=== PATIENT | male | born 1940 ===

== ENCOUNTER 2022-08-09 11:18 | Outpatient (CLI) | payer MEDICARE ==
[2022-08-09 12:56] LABS: Hemoglobin 12.4 g/dL (13.5-17.5); Mean Corpuscular HGB CONC 34.3 g/dL (32.0-36.0); Mean Corpuscular Hemoglobin 30.9 pg (27.0-33.0); Mean Corpuscular Volume 90.3 fl (81.2-95.1); Mean Platelet Volume 9.8 fl (7.4-10.4); Platelet Count 171 10x3/uL (150-450); RBC Distribution Width 13.1 % (11.5-14.5); Red Blood Cell (RBC) Count 4.01 10x6/uL (4.32-5.72); White Blood Cell (WBC) Count 3.1 10x3/uL (3.5-10.5)
[2022-08-09 13:13] LABS: Anion Gap 12 mmol/L (10-20); BUN (Urea Nitrogen) 16 mg/dL (8.4-25.7); Calc. Creatinine Clearance 0 mL/min (70-130); Calcium 9.3 mg/dL (7.8-10.44); Carbon Dioxide 23 mmol/L (23-31); Chloride 108 mmol/L (98-107); Estimated GFR 72; Glucose 112 mg/dL (83-110); Sodium 139 mmol/L (136-145)
[2022-08-10 15:38] VITALS: BMI 28.3
== END 2022-08-09 11:19 | disposition home or self-care (01) ==
LOC: CSHLAB 11:18
PROVIDERS: ATTEND Surgery
DX: Z01.818 Encounter for other preprocedural examination (principal); K40.90 Unilateral inguinal hernia, without obstruction or gangrene, not specified as recurrent
CPT/HCPCS: 80048; 85027; 93005; 93010

== ENCOUNTER 2022-08-12 05:57 | Day surgery (SDC) | payer MEDICARE, BC ==
[2022-08-10 15:52] VITALS: BMI 28.3
[2022-08-12] MEDS ORDERED: EPINEPHrine 1 MG/ML AMP ONE (06:49)
[2022-08-12] MEDS ORDERED: Bupivacaine PF 0.5% 30 ML VIAL ONE (06:49)
[2022-08-12] MEDS ORDERED: Lidocaine 1% PF 5 ML VIAL ONE (07:06)
[2022-08-12] MEDS ORDERED: Ondansetron PF 4 MG/2 ML Vial ONE (07:06)
[2022-08-12] MEDS ORDERED: Fentanyl 100 MCG/2 ML VIAL ONE (07:06)
[2022-08-12] MEDS ORDERED: PROPOFOL 20 ML ONE (07:06)
[2022-08-12] MEDS ORDERED: Dexamethasone 4 mg/ml Vial ONE (07:06)
[2022-08-12] MEDS ORDERED: Rocuronium Bromide 10 MG/ML (10ML VIAL) ONE (07:06)
[2022-08-12] MEDS ORDERED: CEFAZOLIN 2 GM VIAL ONE (07:22)
[2022-08-12] MEDS ORDERED: SUGAMMADEX SODIUM 200 MG/2 ML VIAL ONE (08:09)
[2022-08-12] MEDS ORDERED: HYDROmorphone 0.5 MG/0.5 ML SYRINGE ONE (08:10)
[2022-08-12] MEDS ORDERED: Esmolol 100 MG/10 ML VIAL ONE (08:24)
[2022-08-12] MEDS ORDERED: traMADol HCl 50 MG TAB PO PRN (10:00)
[2022-08-12] MEDS ORDERED: traMADol HCl 50 MG TAB ONE (10:08)
== END 2022-08-12 10:45 | disposition home or self-care (01) ==
LOC: CSHSDC 05:57
PROVIDERS: ATTEND Surgery
PROC: 0YU54JZ Supplement Right Inguinal Region with Synthetic Substitute, Percutaneous Endoscopic Approach (ICD-10-PCS; principal; 2022-08-12)
DX: K40.90 Unilateral inguinal hernia, without obstruction or gangrene, not specified as recurrent (principal); I25.10 Atherosclerotic heart disease of native coronary artery without angina pectoris; E78.5 Hyperlipidemia, unspecified; I10 Essential (primary) hypertension; Z79.02 Long term (current) use of antithrombotics/antiplatelets; Z79.899 Other long term (current) drug therapy; Z79.82 Long term (current) use of aspirin; Z88.8 Allergy status to other drugs, medicaments and biological substances; Z87.891 Personal history of nicotine dependence
CPT/HCPCS: 49650; C1713; J0171; J0690; J1100; J1170; J2405; J2704; J3010; S0020